=== PATIENT | male | born 1965 | race Caucasian/White ===

== ENCOUNTER → 2017-06-09 | Outpatient (CLI) | payer OTHER ==
[~2017-06-09] MED LIST: MULT-506 PO; OMEP20CA59 PO; PARO10TA PO
--- NOTE | 2017-06-09 11:51 | DIAGNOSTIC IMAGING REPORT ---
CHEST 2 VIEWS ROUTINE CLINICAL HISTORY: R07.81 dyspnea COMPARISON STUDY: 11/18/2012 FINDINGS: Mild emphysematous change. Mild chronic interstitial prominence. No focal infiltrate. Diaphragms are smooth. IMPRESSION: Chronic change. No acute process. The above report was generated using voice recognition software. It may contain grammatical, syntax or spelling errors. Electronically signed by: Casey Marcum M.D. 06/09/2017 11:50 AM Dictated Date/Time: 06/09/2017 11:49 AM
== END | disposition home or self-care (01) ==
LOC: C.RAD1850 11:40
PROVIDERS: ATTEND Nurse Practitioner Family
DX: R07.81 Pleurodynia (principal)